=== PATIENT | female | born 1955 | race African-American/Black ===

== ENCOUNTER 2024-05-06 22:39 | Emergency (ER) | payer SELFPAY ==
[~2024-05-06] VITALS: Ht 152.4 cm; Wt 77.0 kg
[2024-05-06 22:44] VITALS: TEMP 97.9; O2SAT 99
[2024-05-07 00:45] LABS: BASOPHILS % 0.3 % (0.0-2.0); EOSINOPHILS % 1.1 % (0.0-5.0); HEMATOCRIT. 31.7 % (36.0-48.0); HEMOGLOBIN. 10.5 g/dL (12.0-16.0); LYMPHOCYTES % 14.9 % (20.0-50.0); MEAN CORPUSCULAR HEMOGLOBIN 29.9 pg (28.0-32.0); MEAN CORPUSCULAR HGB CONC 33.2 g/dL (31.0-37.0); MEAN PLATELET VOLUME 7.8 fl (7.4-10.4); MONOCYTES % 4.8 % (2.0-8.0); NEUTROPHILS % 78.9 % (40.0-76.0); PLATELET 310 x1000/uL (130-400); RED BLOOD CELL COUNT 3.52 mill/uL (4.2-5.4); RED CELL DISTRIBUTION WIDTH 14.9 % (11.6-14.6); WHITE BLOOD COUNT 7.1 x1000/uL (4.5-11.0)
[2024-05-07 00:49] LABS: CHLORIDE 111 mEq/L (98-107); POTASSIUM 3.5 mEq/L (3.5-5.1); SODIUM 142 mEq/L (136-145)
[2024-05-07 00:50] LABS: CARBON DIOXIDE 26 mEq/L (21-32)
[2024-05-07 00:54] LABS: INR 0.9; PROTHROMBIN TIME 10.4 sec (9.6-11.0)
[2024-05-07 00:55] LABS: CREATININE 0.8 mg/dL (0.6-1.0); GLUCOSE 79 mg/dL (70-105); UREA NITROGEN BLOOD 13 mg/dL (9-23)
[2024-05-07 00:57] LABS: ALANINE AMINOTRANSFERASE 13 IU/L (10-49); ASPARTATE AMINOTRANSFERASE 24 IU/L (<34); BILIRUBIN TOTAL 0.2 mg/dL (0.1-1.0); CREATINE KINASE 206 IU/L (34-145); PHOSPHORUS 2.6 mg/dL (2.5-4.9); PROTEIN TOTAL 6.8 g/dL (6.0-8.3)
[2024-05-07 01:00] LABS: BILIRUBIN DIRECT < 0.1 mg/dL (<=3.0)
[2024-05-07] MEDS: ACETAMINOPHEN 325MG TABLET PO NR (01:00)
[2024-05-07] MEDS ORDERED: ACET-2708 MT (01:30)
[2024-05-07] MEDS: SODIUM CHLORIDE 0.9% 1,000 ML IV NR (01:45)
[2024-05-07 02:50] VITALS: BP 108/69; PULSE 82; RESP 18; O2SAT 100
== END 2024-05-07 03:08 | disposition home or self-care (01) ==
LOC: ER 22:39
DX: R25.2 Cramp and spasm (principal)
CPT/HCPCS: 36415; 80048; 80076; 82550; 83735; 84100; 85025; 93970; 96360; 99284